=== PATIENT | female | born 1950 | race Caucasian/White ===

== ENCOUNTER 2022-01-01 08:38 | Outpatient (CLI) | payer MEDICARE ==
[2022-01-01 10:47] LABS: Hemoglobin 12.5 g/dL (12.0-15.5); Mean Corpuscular HGB CONC 31.8 g/dL (32.0-36.0); Mean Corpuscular Hemoglobin 30.6 pg (27.0-33.0); Mean Corpuscular Volume 96.3 fl (81.6-98.3); Mean Platelet Volume 10.9 fl (7.4-10.4); Platelet Count 266 10x3/uL (150-450); RBC Distribution Width 12.5 % (11.5-14.5); Red Blood Cell (RBC) Count 4.08 10x6/uL (3.90-5.03); White Blood Cell (WBC) Count 6.6 10x3/uL (3.5-10.5)
[2022-01-01 11:05] LABS: INR-International Normal Ratio 0.9; PTT 23.9 sec (22.0-33.0); Prothrombin Time 9.8 sec (9.5-12.1)
[2022-01-01 11:08] LABS: Anion Gap 14 mmol/L (10-20); BUN (Urea Nitrogen) 24 mg/dL (9.8-20.1); Calc. Creatinine Clearance 0 mL/min (70-130); Calcium 9.8 mg/dL (7.8-10.44); Carbon Dioxide 28 mmol/L (23-31); Chloride 102 mmol/L (98-107); Glucose 88 mg/dL (80-115); Potassium 4.5 mmol/L (3.5-5.1); Sodium 139 mmol/L (136-145)
[2022-01-01 22:44] LABS: SARS-CoV-2 PCR by NAA Not Detected (NotDetected)
== END 2022-01-01 08:39 | disposition home or self-care (01) ==
LOC: LABBT 08:38
PROVIDERS: ATTEND Surgery
DX: Z01.818 Encounter for other preprocedural examination (principal); M48.062 Spinal stenosis, lumbar region with neurogenic claudication; M54.16 Radiculopathy, lumbar region; Z20.822 Contact with and (suspected) exposure to COVID-19
CPT/HCPCS: 80048; 85027; 85610; 85730; 93005; U0003; U0005; 93010

== ENCOUNTER 2022-01-04 05:36 | Inpatient (IN) | payer MEDICARE ==
[2022-01-02 10:04] VITALS: BMI 31.1
[2022-01-04] MEDS ORDERED: Thrombin 5000 UNITS/5 ML VIAL ONE (06:26)
[2022-01-04] MEDS ORDERED: Lidocaine 2% Jelly 5 ML TUBE ONE (06:45)
[2022-01-04] MEDS ORDERED: Fentanyl 250 MCG/5 ML VIAL ONE ×2 (06:45→11:01)
[2022-01-04] MEDS ORDERED: ceFAZolin (BATCH) 2 GM/100 ML BAG ONE ×2 (07:09→07:10)
[2022-01-04] MEDS ORDERED: Glycopyrrolate 0.2 MG/ML 5 ML SYRINGE ONE (07:30)
[2022-01-04] MEDS ORDERED: PHENYLEPHRINE-NS 100 MCG/ML 10 ML SYRINGE ONE (07:30)
[2022-01-04] MEDS ORDERED: ePHEDrine 50 MG/ML VIAL ONE (07:30)
[2022-01-04] MEDS ORDERED: Ondansetron PF 4 MG/2 ML Vial ONE (07:30)
[2022-01-04] MEDS ORDERED: Lidocaine 1% PF 5 ML VIAL ONE (07:30)
[2022-01-04] MEDS ORDERED: PROPOFOL 200 MG/20 ML VIAL ONE (07:30)
[2022-01-04] MEDS ORDERED: Rocuronium Bromide 10 MG/ML (10ML VIAL) ONE (07:30)
[2022-01-04] MEDS ORDERED: Dexamethasone 20 MG/5 ML VIAL ONE (07:30)
[2022-01-04] MEDS ORDERED: Acetaminophen 325 MG TAB PO PRN (10:54)
[2022-01-04] MEDS ORDERED: Acetaminophen/Codeine 30-300mg Tablet PO PRN (10:54)
[2022-01-04] MEDS ORDERED: Promethazine HCl 25 MG/ML VIAL IM PRN (10:58)
[2022-01-04] MEDS ORDERED: Ondansetron HCl/PF 4 MG/2 ML Vial IVP PRN (10:58)
[2022-01-04] MEDS ORDERED: Promethazine HCl 25 MG/ML VIAL IVPB PRN (10:58)
[2022-01-04] MEDS ORDERED: hydrALAZINE 20 MG/ML VIAL SLOW IVP PRN (10:59)
[2022-01-04] MEDS ORDERED: HYDROmorphone 0.5 MG/0.5 ML SYRINGE SLOW IVP SCH (11:15)
[2022-01-04] MEDS ORDERED: HYDROmorphone 2 MG/ML VIAL ONE (11:24)
[2022-01-04] MEDS: Ondansetron PF 4 MG/2 ML Vial IVP PRN ×2 (13:09→20:21)
[2022-01-04] MEDS: HYDROcodone/Acetaminophen 7.5/325 mg Tablet PO PRN ×2 (13:09→20:21)
[2022-01-04] MEDS: ceFAZolin (BATCH) 2 GM in Premix Bag 1 BAG IVPB SCH ×2 (15:08→23:03)
[2022-01-04] MEDS: tiZANidine HCl 4 MG TAB PO PRN (17:15)
[2022-01-04] MEDS ORDERED: Famotidine 20 MG TAB PO SCH (21:00)
[2022-01-05] MEDS: Morphine 2 MG/ML VIAL SLOW IVP PRN ×3 (04:37→16:38)
[2022-01-05] MEDS: Furosemide 20 MG TAB PO SCH (08:57)
[2022-01-05] MEDS: Losartan 25 MG TAB PO SCH (08:57)
[2022-01-05] MEDS: Ezetimibe 10 MG TAB PO SCH (08:57)
[2022-01-05] MEDS: Amlodipine 5 MG TAB PO SCH (08:57)
[2022-01-05] MEDS: Bupropion 150 MG XL TAB PO SCH (08:58)
[2022-01-05] MEDS: tiZANidine HCl 4 MG TAB PO PRN (17:56)
[2022-01-05] MEDS: HYDROcodone/Acetaminophen 7.5/325 mg Tablet PO PRN (19:51)
[2022-01-06] MEDS: traMADol HCl 50 MG TAB PO PRN ×3 (02:12→21:13)
[2022-01-06] MEDS: Ondansetron PF 4 MG/2 ML Vial IVP PRN (08:06)
[2022-01-06] MEDS ORDERED: Sodium Chloride 0.9% 500 ML IV SCH (08:15)
[2022-01-06] MEDS: Ketorolac Tromethamine 30 MG/ML VIAL IVP PRN ×3 (08:21→21:13)
[2022-01-06] MEDS: Ezetimibe 10 MG TAB PO SCH (09:06)
[2022-01-06] MEDS: Bupropion 150 MG XL TAB PO SCH (09:06)
[2022-01-06] MEDS: Morphine 2 MG/ML VIAL SLOW IVP PRN (15:46)
[2022-01-06] MEDS: HYDROcodone/Acetaminophen 7.5/325 mg Tablet PO PRN (18:10)
[2022-01-07] MEDS: HYDROcodone/Acetaminophen 7.5/325 mg Tablet PO PRN ×3 (01:24→18:51)
[2022-01-07] MEDS: traMADol HCl 50 MG TAB PO PRN ×4 (06:09→23:34)
[2022-01-07] MEDS: Ezetimibe 10 MG TAB PO SCH (08:55)
[2022-01-07] MEDS: Bupropion 150 MG XL TAB PO SCH (08:55)
[2022-01-07] MEDS: Ketorolac Tromethamine 30 MG/ML VIAL IVP PRN ×3 (08:55→23:34)
[2022-01-07] MEDS: Docusate 100 MG CAP PO SCH ×2 (10:15→20:55)
[2022-01-07] MEDS: Dexamethasone 4 MG TAB PO SCH ×4 (10:17→20:55)
[2022-01-07] MEDS ORDERED: Methocarbamol 500 MG TAB PO PRN (21:10)
[2022-01-07] MEDS ORDERED: tiZANidine HCl 4 MG TAB PO PRN (21:11)
[2022-01-07] MEDS ORDERED: Famotidine 20 MG TAB PO SCH (21:15)
[2022-01-08] MEDS: HYDROcodone/Acetaminophen 7.5/325 mg Tablet PO PRN ×3 (05:37→20:33)
[2022-01-08] MEDS: Furosemide 20 MG TAB PO SCH (09:06)
[2022-01-08] MEDS: traMADol HCl 50 MG TAB PO PRN ×2 (09:06→17:40)
[2022-01-08] MEDS: Ketorolac Tromethamine 30 MG/ML VIAL IVP PRN ×2 (09:06→20:33)
[2022-01-08] MEDS: Dexamethasone 1 MG TAB PO SCH ×4 (09:07→20:32)
[2022-01-08] MEDS: Bupropion 150 MG XL TAB PO SCH (09:07)
[2022-01-08] MEDS: Docusate 100 MG CAP PO SCH ×2 (09:07→20:33)
[2022-01-08] MEDS: Losartan 25 MG TAB PO SCH (09:07)
[2022-01-08] MEDS: Amlodipine 5 MG TAB PO SCH (09:08)
[2022-01-08] MEDS: Ezetimibe 10 MG TAB PO SCH (09:08)
[2022-01-08] MEDS: Famotidine 20 MG TAB PO SCH ×2 (09:08→20:32)
[2022-01-08] MEDS: Polyethylene Glycol 3350 17 GM Packet PO PRN (17:41)
[2022-01-09] MEDS: Ketorolac Tromethamine 30 MG/ML VIAL IVP PRN (04:21)
[2022-01-09] MEDS: traMADol HCl 50 MG TAB PO PRN ×2 (04:21→11:49)
[2022-01-09] MEDS: Losartan 25 MG TAB PO SCH (09:26)
[2022-01-09] MEDS: Polyethylene Glycol 3350 17 GM Packet PO PRN (09:26)
[2022-01-09] MEDS: Amlodipine 5 MG TAB PO SCH (09:27)
[2022-01-09] MEDS: Docusate 100 MG CAP PO SCH (09:27)
[2022-01-09] MEDS: Furosemide 20 MG TAB PO SCH (09:27)
[2022-01-09] MEDS: Famotidine 20 MG TAB PO SCH (09:27)
[2022-01-09] MEDS: Dexamethasone 1 MG TAB PO SCH ×2 (09:27→11:50)
[2022-01-09] MEDS: Ezetimibe 10 MG TAB PO SCH (09:27)
[2022-01-09] MEDS: Bupropion 150 MG XL TAB PO SCH (09:27)
[2022-01-09 12:10] VITALS: BP 147/79; TEMP 98.1
[2022-01-10] MEDS ORDERED: Dexamethasone 1 MG TAB PO SCH (08:00)
== END 2022-01-09 13:10 | disposition home health service (06) | DRG 517 ==
LOC: SDC 05:36 → SURG B 11:01 → OBSVTOIN 01-06 17:37
PROVIDERS: ADMIT Surgery; ATTEND Surgery
PROC: 01NB0ZZ Release Lumbar Nerve, Open Approach (ICD-10-PCS; principal; 2022-01-04)
PROC: 01NR0ZZ Release Sacral Nerve, Open Approach (ICD-10-PCS; 2022-01-04)
DX: M48.062 Spinal stenosis, lumbar region with neurogenic claudication (principal); M54.16 Radiculopathy, lumbar region; M48.07 Spinal stenosis, lumbosacral region; I10 Essential (primary) hypertension; E78.5 Hyperlipidemia, unspecified; Z90.49 Acquired absence of other specified parts of digestive tract; Z90.710 Acquired absence of both cervix and uterus; Z83.3 Family history of diabetes mellitus; Z82.49 Family history of ischemic heart disease and other diseases of the circulatory system; Z79.899 Other long term (current) drug therapy; Z98.890 Other specified postprocedural states
CPT/HCPCS: 76000; 93970; 96365; 96375; 96376; C1776; G0378; J0690; J1100; J1170; J1885; J2270; J2405; J2704; J3010; J3370; J3490; J7030; J8540